=== PATIENT | male | born 1955 | race Caucasian/White ===

== ENCOUNTER → 2018-04-28 | Outpatient (CLI) | payer OTHER ==
--- NOTE | 2018-04-28 13:54 | EKG ---
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
[2018-04-28 13:57] LABS: CALCIUM 9.4 mg/dL (8.5-10.1); CREATININE 1.2 mg/dL (0.7-1.3); GFR 61.3; POTASSIUM 4.5 mmol/L (3.5-5.1)
== END | disposition home or self-care (01) ==
LOC: LAB 13:16
PROVIDERS: ATTEND Anesthesiology
DX: Z01.812 Encounter for preprocedural laboratory examination (principal)
CPT/HCPCS: 36415; 80048; 93005

== ENCOUNTER → 2018-10-10 | Outpatient (CLI) | payer OTHER ==
--- NOTE | 2018-10-10 14:08 | KCIC ---
Bilateral diagnostic digital mammograms: Reason for examination: Left breast lump. Family history of breast cancer. Interpretation was made with the benefit of CAD. The skin and nipples show no abnormalities. No abnormal lymph nodes are seen. The breast parenchyma is predominantly fatty. (Breast density: Category A.) There are no dominant masses, suspicious calcifications or architectural distortions. A few benign calcifications are seen. Impression: No evidence of malignancy. Ultrasound to follow. BI-RADS Category 0: Incomplete. Needs additional imaging evaluation. Left breast ultrasound: Ultrasound examination of the left breast was performed with attention to the area of clinical concern and the left axilla. At the 4:00 position 6.5 cm from the nipple and corresponding to the area of clinical concern, there is a hyperechoic circumscribed lesion measuring approximately 8 x 6.8 mm in greatest dimension. This likely represents a small lipoma or possibly a small hematoma. Recommend reevaluation in 3 months with ultrasound. No other cystic or solid lesions are seen. No abnormal appearing lymph nodes are seen in the axilla. IMPRESSION: 8 x 6.8 mm hyperechoic lesion probably representing a hematoma or lipoma at the 4:00 position and corresponding to the area of clinical concern. Recommend reevaluation with ultrasound in 3 months. BI-RADS Category 3: Probably Benign. "Our facility is accredited by the [employer] Mammography Program." This patient's information has been entered into a reminder system for the patient to be notified with the results of her examination and a target date for the next mammogram. Electronically signed by: Kathy Danielson MD (10/10/2018 2:03 PM) [id number]
== END | disposition home or self-care (01) ==
LOC: KCIC MAMMO 13:00
PROVIDERS: ATTEND Family Medicine
DX: N63.23 Unspecified lump in the left breast, lower outer quadrant (principal); Z80.3 Family history of malignant neoplasm of breast
CPT/HCPCS: 76641; 77066

== ENCOUNTER 2018-11-21 16:16 | Inpatient (IN) | payer OTHER ==
[~2018-11-21] VITALS: Ht 182.9 cm; Wt 107.5 kg
[2018-11-21 16:59] LABS: BASO # 0.1 x10^3/uL (0.0-0.2); BASO % 1 % (0-3); EOS # 0.1 x10^3/uL (0.0-0.7); EOS % 2 % (0-3); HEMATOCRIT 44.3 % (39.0-53.0); HEMOGLOBIN 15.1 g/dL (13.0-17.5); LYMPH # 2.4 x10^3/uL (1.0-4.8); LYMPH % 40 % (24-48); MEAN CORPUSCULAR HEMOGLOBIN 27 pg (25-35); MEAN CORPUSCULAR HGB CONC 34 g/dL (31-37); MEAN CORPUSCULAR VOLUME 80 fL (79-100); MONO # 0.5 x10^3/uL (0.0-1.1); MONO % 9 % (0-9); NEUT # 2.8 x10^3uL (1.8-7.7); NEUT % 48 % (31-73); PLATELET COUNT 203 x10^3/uL (140-400); RED BLOOD COUNT 5.56 x10^6/uL (4.30-5.70); RED CELL DISTRIBUTION WIDTH 13.7 % (11.5-14.5); WHITE BLOOD COUNT 5.9 x10^3/uL (4.0-11.0)
[2018-11-21] MEDS ORDERED: ASPIRIN 325 MG TABLET PO ONE (17:00)
--- NOTE | 2018-11-21 17:14 | PHYS DOC ---
Past Medical History Past Medical History: CAD, Cancer, Diabetes-Type II, High Cholesterol, Hypertension, Other Additional Past Medical Histor: PROSTATE CA Past Surgical History: Appendectomy, Coronary Bypass Surgery, Other Additional Past Surgical Histo: PROSTECTOMY Alcohol Use: None Drug Use: None Adult General Chief Complaint Chief Complaint: CHEST PAIN HPI HPI Patient is a 63 year old male who presents with male 2-1/2 weeks of bilateral chest fullness and sharp pain with shortness of air with exertion. Review of Systems Review of Systems Constitutional: Denies fever or chills [] Eyes: Denies change in visual acuity, redness, or eye pain [] HENT: Denies nasal congestion or sore throat [] Respiratory: Denies cough. +shortness of breath [] Cardiovascular: Bilateral chest pain without radiation GI: Denies abdominal pain, nausea, vomiting, bloody stools or diarrhea [] : Denies dysuria or hematuria [] Musculoskeletal: Denies back pain or joint pain [] Integument: Denies rash or skin lesions [] Neurologic: Denies headache, focal weakness or sensory changes [] Endocrine: Denies polyuria or polydipsia [] All other systems were reviewed and found to be within normal limits, except as documented in this note. Current Medications Current Medications Current Medications Medications (Trade) Dose Ordered Sig/Deidre Start Time Stop Time Status Last Admin Dose Admin Acetaminophen (Tylenol) 650 mg PRN Q4HRS PRN 11/21/18 17:30 11/22/18 17:29 Aspirin (Alex Aspirin) 325 mg 1X ONCE 11/21/18 17:00 11/21/18 17:01 DC 11/21/18 17:03 325 MG Fentanyl Citrate (Fentanyl 2ml Vial) 50 mcg PRN Q1HR PRN 11/21/18 17:30 11/22/18 17:29 Nitroglycerin (Nitrostat) 0.4 mg PRN Q5MIN PRN 11/21/18 17:30 11/22/18 17:29 Ondansetron HCl (Zofran) 4 mg PRN Q8HRS PRN 11/21/18 17:30 11/22/18 17:29 Allergies Allergies Allergies Coded Allergies Type Severity Reaction Last Updated Verified Ssilzja-Bgu-Iai Reductase Inhibitor Allergy Intermediate 11/21/18 Yes Physical Exam Physical Exam Constitutional: Well developed, well nourished, no acute distress, non-toxic appearance. [] HENT: Normocephalic, atraumatic, bilateral external ears normal, oropharynx moist, no oral exudates, nose normal. [] Eyes: PERRLA, EOMI, conjunctiva normal, no discharge. [] Neck: Normal range of motion, no tenderness, supple, no stridor. [] Cardiovascular:Heart rate regular rhythm, right bundle branch block, no murmur [ ] Lungs & Thorax: Bilateral breath sounds clear to auscultation [] Abdomen: Bowel sounds normal, soft, no tenderness, no masses, no pulsatile masses. [] Skin: Warm, dry, no erythema, no rash. [] Back: No tenderness, no CVA tenderness. [] Extremities: No tenderness, no cyanosis, no clubbing, ROM intact, no edema. [] Neurologic: Alert and oriented X 3, normal motor function, normal sensory function, no focal deficits noted. [] Psychologic: Affect normal, judgement normal, mood normal. [] Current Patient Data Vital Signs Vital Signs Date Time Temp Pulse Resp B/P (MAP) Pulse Ox O2 Delivery O2 Flow Rate FiO2 11/21/18 16:18 97.8 58 20 170/80 (110) 97 Room Air 97.8 Lab Values Laboratory Tests Test 11/21/18 16:45 White Blood Count 5.9 x10^3/uL (4.0-11.0) Red Blood Count 5.56 x10^6/uL (4.30-5.70) Hemoglobin 15.1 g/dL (13.0-17.5) Hematocrit 44.3 % (39.0-53.0) Mean Corpuscular Volume 80 fL (79-100) Mean Corpuscular Hemoglobin 27 pg (25-35) Mean Corpuscular Hemoglobin Concent 34 g/dL (31-37) Red Cell Distribution Width 13.7 % (11.5-14.5) Platelet Count 203 x10^3/uL (140-400) Neutrophils (%) (Auto) 48 % (31-73) Lymphocytes (%) (Auto) 40 % (24-48) Monocytes (%) (Auto) 9 % (0-9) Eosinophils (%) (Auto) 2 % (0-3) Basophils (%) (Auto) 1 % (0-3) Neutrophils # (Auto) 2.8 x10^3uL (1.8-7.7) Lymphocytes # (Auto) 2.4 x10^3/uL (1.0-4.8) Monocytes # (Auto) 0.5 x10^3/uL (0.0-1.1) Eosinophils # (Auto) 0.1 x10^3/uL (0.0-0.7) Basophils # (Auto) 0.1 x10^3/uL (0.0-0.2) Troponin I Quantitative < 0.017 ng/mL (0.000-0.055) Laboratory Tests 11/21/18 16:45 EKG EKG Sinus rhythm and right bundle branch block with no STEMI[] Interpretation Time: [address] Mckeon Radiology/Procedures Radiology/Procedures [] Impressions: [facility] [address] [place] [address] IMAGING REPORT Signed PATIENT: AMBER STEEL ACCOUNT: [id number] : 1955 LOCATION: ER AGE: 63 SEX: M EXAM STATUS: REG ER ORD. PHYSICIAN: CHRIS ANDERSON APRN REASON: chest pain PROCEDURE: CHEST PA & LATERAL EXAM: Chest, 2 views. HISTORY: Chest pain. COMPARISON: None. FINDINGS: 2 views the chest are obtained. There is no infiltrate, pleural effusion or pneumothorax. The heart is normal in size. There is evidence of prior CABG. There is suspected lingular atelectasis or scarring. IMPRESSION: No acute pulmonary finding. Electronically signed by: Paula Muñoz MD (11/21/2018 5:34 PM) [id number] DICTATED and SIGNED BY: PAULA MUÑOZ MD DATE: 11/21/18 1866 Course & Med Decision Making Course & Med Decision Making Patient is a 63 year old male who presents with male 2-1/2 weeks of bilateral chest fullness and sharp pain with shortness of air with exertion. Patient is alert and oriented. Skin pink warm and dry. Mucous membranes are moist. Speaks in full clear sentences. Rates his pain at this time at a 2 out of 10. Patient is refusing any pain medications nitroglycerin at this time. Patient is given a 325mg aspirin. Lungs are clear also patient all lobes. Abdomen is soft and nontender. Chest pain cannot be reproducible with palpation. Patient denies dizziness, headache, numbness or tingling, nausea, vomiting, diarrhea, fever, cough. He has no peripheral extremity edema. EKG shows sinus rhythm, right bundle branch block and no STEMI. Patient states he saw his primary care physician Dr. Nelson who sent him to the ED. PERRLA. No focal weaknesses. Ambulatory with a steady gait. Heart score 4. Blood work unremarkable. Chest xray shows no acute findings. 1720: I have spoken to Dr. Nelson for Admission for chest pain. Dragon Disclaimer Dragon Disclaimer This electronic medical record was generated, in whole or in part, using a voice recognition dictation system. Departure Departure Impression: Primary Impression: Chest pain Disposition: ADMITTED INPATIENT Admitting Physician: Mario Nelson Condition: STABLE Referrals: MARIO NELSON MD (PCP) Problem Qualifiers Primary Impression: Chest pain Chest pain type: unspecified Qualified Codes: R07.9 - Chest pain, unspecified CHRIS ANDERSON LEGAL PROCESS SPECIALIST Nov 21, 2018 17:14
[2018-11-21] MEDS ORDERED: ACETAMINOPHEN 325 MG TABLET. PO PRN (17:30)
[2018-11-21] MEDS ORDERED: fentaNYL PF VIAL 100 MCG/2 ML VIAL IV PRN (17:30)
[2018-11-21] MEDS ORDERED: ONDANSETRON PF 4 MG/2 ML VIAL. IV PRN (17:30)
[2018-11-21] MEDS ORDERED: NITROGLYCERIN SUBLINGUAL 0.4 MG BOTTLE OF 25. SL PRN (17:30)
--- NOTE | 2018-11-21 17:37 | RAD ---
EXAM: Chest, 2 views. HISTORY: Chest pain. COMPARISON: None. FINDINGS: 2 views the chest are obtained. There is no infiltrate, pleural effusion or pneumothorax. The heart is normal in size. There is evidence of prior CABG. There is suspected lingular atelectasis or scarring. IMPRESSION: No acute pulmonary finding. Electronically signed by: Paula Spencer MD (11/21/2018 5:34 PM) [facility]
[2018-11-21 20:20] VITALS: BP 157/88
[2018-11-21] MEDS ORDERED: GEMF600T PO (21:33)
[2018-11-21] MEDS ORDERED: INSU100V SQ (21:33)
[2018-11-21] MEDS ORDERED: INSU300I SQ (21:33)
[2018-11-21] MEDS ORDERED: AMLO5TAB10 PO (21:33)
[2018-11-21] MEDS ORDERED: PANT40GR PO (21:33)
[2018-11-21] MEDS ORDERED: HYDR25TA PO (21:33)
[2018-11-21] MEDS ORDERED: EMPA25TA PO (21:33)
[2018-11-21] MEDS ORDERED: PROP80CA3 PO (21:33)
[2018-11-21 23:13] VITALS: BP 134/71
[2018-11-21] MEDS ORDERED: DEXTROSE 50% 25 GM / 50ML DISP.SYRIN. IV PRN (23:30)
[2018-11-21 23:36] LABS: CALCIUM 9.6 mg/dL (8.5-10.1); GFR 75.5; POTASSIUM 3.9 mmol/L (3.5-5.1)
[2018-11-21] MEDS ORDERED: INSULIN LISPRO 300 UNITS/3 ML INSULN.PEN. SQ ONE (23:45)
[2018-11-21] MEDS: ZOLPIDEM 5 MG TABLET. PO PRN (23:52)
[2018-11-22] VITALS (10 sets, daily range): BP systolic 109–138; BP diastolic 63–89
--- NOTE | 2018-11-22 06:58 | PDOC1 ---
History and Physical Date of Admission Date of Admission 11/22/18 Identification/Chief Complaint Chief Complaint Chest pain Source Source: Patient History of Present Illness History of Present Illness Pt presented to clinic yesterday complaining of chest pain with exertion over the past 2 weeks, occurring with walking and with intercourse. Pt would also get short of air. He has been following with Dr. Butler and has not established with a new director of publications. He has had 2 CABGs in the past. His last stress was about 2 years ago according to patient and was normal. Pt also has a left chest mass. It has not increased in size but he has noticed increased swelling and achiness in his left side Past Medical History Cardiovascular: CAD, HTN, Hyperlipidemia Pulmonary: No pertinent hx GI: No pertinent hx Heme/Onc: No pertinent hx Hepatobiliary: No pertinent hx Psych: Anxiety Rheumatologic: No pertinent hx Infectious disease: No pertinent hx ENT: No pertinent hx Renal/: Prostate Ca. Endocrine: Diabetes Dermatology: No pertinent hx Past Surgical History Past Surgical History: Appendectomy, CABG, Other (Prostectomy, deviated septum repair, hand tendon repair) Family History Family History: Alzheimer's Disease Social History Smoke: # pack years ALCOHOL: none Drugs: None Current Problem List Problem List Problems Medical Problems: (1) Chest pain Status: Acute Current Medications Current Medications Current Medications Medications (Trade) Dose Ordered Sig/Deidre Start Time Stop Time Status Last Admin Dose Admin Acetaminophen (Tylenol) 650 mg PRN Q4HRS PRN 11/21/18 17:30 11/22/18 17:29 Aspirin (Alex Aspirin) 325 mg 1X ONCE 11/21/18 17:00 11/21/18 17:01 DC 11/21/18 17:03 325 MG Dextrose (Dextrose 50%-Water Syringe) 12.5 gm PRN Q15MIN PRN 11/21/18 23:30 Fentanyl Citrate (Fentanyl 2ml Vial) 50 mcg PRN Q1HR PRN 11/21/18 17:30 11/22/18 17:29 Insulin Glargine (Lantus) 56 units DAILY 11/22/18 09:00 Insulin Human Lispro (HumaLOG) 15 units TIDWMEALS 11/22/18 08:00 Nitroglycerin (Nitrostat) 0.4 mg PRN Q5MIN PRN 11/21/18 17:30 11/22/18 17:29 Ondansetron HCl (Zofran) 4 mg PRN Q8HRS PRN 11/21/18 17:30 11/22/18 17:29 Zolpidem Tartrate (Ambien) 5 mg PRN QHS PRN 11/21/18 23:30 11/21/18 23:52 5 MG Allergies Allergies Allergies Coded Allergies Type Severity Reaction Last Updated Verified Rfjtvvn-Ahh-Yae Reductase Inhibitor Allergy Intermediate 11/21/18 Yes ROS Review of System CONSTITUTIONAL: No fever or chills EYES: No recent changes SKIN: No rash or itching CARDIOVASCULAR: No syncope, palpitations, or edema, +CP RESPIRATORY: No cough, +SOA when he has chest pain GASTROINTESTINAL: No nausea, vomiting or abdominal pain NEUROLOGICAL: No headaches or weakness ENDOCRINE: No cold or heat intolerance GENITOURINARY: No urgency or frequency of urination MUSCULOSKELETAL: No back pain or joint pain LYMPHATICS: No enlarged lymph nodes PSYCHIATRIC: No anxiety or depression Physical Exam Physical Exam GEN.: No apparent distress. Alert and oriented. HEENT: Head is normocephalic, atraumatic NECK: Supple. LUNGS: Clear to auscultation. HEART: RRR, S1, S2 present. Peripheral pulses intact ABDOMEN: Soft, nontender. Positive bowel sounds. EXTREMITIES: Without any cyanosis. NEUROLOGIC: Normal speech, normal tone PSYCHIATRIC: Normal affect, normal mood. SKIN: No ulcerations Vitals Vitals Vital Signs Date Time Temp Pulse Resp B/P (MAP) Pulse Ox O2 Delivery O2 Flow Rate FiO2 11/22/18 03:03 97.7 70 18 109/63 (78) 96 Room Air 97.7 Labs Labs Laboratory Tests Test 11/21/18 16:45 11/21/18 23:10 11/21/18 23:21 White Blood Count 5.9 x10^3/uL (4.0-11.0) Red Blood Count 5.56 x10^6/uL (4.30-5.70) Hemoglobin 15.1 g/dL (13.0-17.5) Hematocrit 44.3 % (39.0-53.0) Mean Corpuscular Volume 80 fL (79-100) Mean Corpuscular Hemoglobin 27 pg (25-35) Mean Corpuscular Hemoglobin Concent 34 g/dL (31-37) Red Cell Distribution Width 13.7 % (11.5-14.5) Platelet Count 203 x10^3/uL (140-400) Neutrophils (%) (Auto) 48 % (31-73) Lymphocytes (%) (Auto) 40 % (24-48) Monocytes (%) (Auto) 9 % (0-9) Eosinophils (%) (Auto) 2 % (0-3) Basophils (%) (Auto) 1 % (0-3) Neutrophils # (Auto) 2.8 x10^3uL (1.8-7.7) Lymphocytes # (Auto) 2.4 x10^3/uL (1.0-4.8) Monocytes # (Auto) 0.5 x10^3/uL (0.0-1.1) Eosinophils # (Auto) 0.1 x10^3/uL (0.0-0.7) Basophils # (Auto) 0.1 x10^3/uL (0.0-0.2) Troponin I Quantitative < 0.017 ng/mL (0.000-0.055) < 0.017 ng/mL (0.000-0.055) Sodium Level 141 mmol/L (136-145) Potassium Level 3.9 mmol/L (3.5-5.1) Chloride Level 104 mmol/L (98-107) Carbon Dioxide Level 25 mmol/L (21-32) Anion Gap 12 (6-14) Blood Urea Nitrogen 19 mg/dL (8-26) Creatinine 1.0 mg/dL (0.7-1.3) Estimated GFR (Cockcroft-Gault) 75.5 Glucose Level 219 mg/dL (70-99) Calcium Level 9.6 mg/dL (8.5-10.1) Glucose (Fingerstick) 210 mg/dL (70-99) Laboratory Tests Test 11/21/18 16:45 11/21/18 23:10 11/21/18 23:21 White Blood Count 5.9 x10^3/uL (4.0-11.0) Red Blood Count 5.56 x10^6/uL (4.30-5.70) Hemoglobin 15.1 g/dL (13.0-17.5) Hematocrit 44.3 % (39.0-53.0) Mean Corpuscular Volume 80 fL (79-100) Mean Corpuscular Hemoglobin 27 pg (25-35) Mean Corpuscular Hemoglobin Concent 34 g/dL (31-37) Red Cell Distribution Width 13.7 % (11.5-14.5) Platelet Count 203 x10^3/uL (140-400) Neutrophils (%) (Auto) 48 % (31-73) Lymphocytes (%) (Auto) 40 % (24-48) Monocytes (%) (Auto) 9 % (0-9) Eosinophils (%) (Auto) 2 % (0-3) Basophils (%) (Auto) 1 % (0-3) Neutrophils # (Auto) 2.8 x10^3uL (1.8-7.7) Lymphocytes # (Auto) 2.4 x10^3/uL (1.0-4.8) Monocytes # (Auto) 0.5 x10^3/uL (0.0-1.1) Eosinophils # (Auto) 0.1 x10^3/uL (0.0-0.7) Basophils # (Auto) 0.1 x10^3/uL (0.0-0.2) Troponin I Quantitative < 0.017 ng/mL (0.000-0.055) < 0.017 ng/mL (0.000-0.055) Sodium Level 141 mmol/L (136-145) Potassium Level 3.9 mmol/L (3.5-5.1) Chloride Level 104 mmol/L (98-107) Carbon Dioxide Level 25 mmol/L (21-32) Anion Gap 12 (6-14) Blood Urea Nitrogen 19 mg/dL (8-26) Creatinine 1.0 mg/dL (0.7-1.3) Estimated GFR (Cockcroft-Gault) 75.5 Glucose Level 219 mg/dL (70-99) Calcium Level 9.6 mg/dL (8.5-10.1) Glucose (Fingerstick) 210 mg/dL (70-99) VTE Prophylaxis Ordered VTE Prophylaxis Devices: No VTE Pharmacological Prophylaxi: No Assessment/Plan Assessment/Plan Pt is a 63yo CM admitted for chest pain 1)Chest pain with exertion- significant history of CAD. Last stress test was about 2 years ago and was normal. Previous director of publications was Dr. Butler, has not established with a new director of publications. EKG in clinic was abnormal but no acute changes and no previous to compare to. Troponin x2 WNL 2)Left flank swelling- with left chest lesion. Will get U/S 3)DM2- not at goal. HbA1C pending. Pt continued on home doses of Lantus 56 units QHS and Humalog 15U QAC. Pt also on Jardiance, but will hold this for now while pt is NPO 4)HLD- pt intolerant to statins. Not at goal, repeat FLP pending. Pt normally on Lopid 600mg qday 5)HTN- well controlled. Will continue pt on Norvasc 5mg and Propranolol 80mg ER when no longer NPO 6)Anxiety- pt uses Vistaril for his anxiety ANGEL SWANN MD Nov 22, 2018 06:58
[2018-11-22] MEDS ORDERED: hydrALAZINE 20 MG/ML VIAL. IVP PRN (07:00)
[2018-11-22] MEDS: INSULIN LISPRO 300 UNITS/3 ML INSULN.PEN. SQ SCH ×6 (08:00→17:46)
--- NOTE | 2018-11-22 08:19 | EKG ---
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
[2018-11-22 08:45] LABS: CHOLESTEROL/HDL RATIO 6.6
[2018-11-22] MEDS: INSULIN GLARGINE 300 UNITS/3 ML INSULN.PEN. SQ SCH (09:00)
--- NOTE | 2018-11-22 10:38 | PDOC2 ---
YOU CHRISTIAN TELEPHONE AD TAKER 11/22/18 1038: CARDIAC CONSULT DATE OF CONSULT Date of Consult DATE: 11/22/18 TIME: 10:33 REASON FOR CONSULT Reason for Consult: Chest pain REFERRING PHYSICIAN Referring Physician: Dr. Nixon SOURCE Source: Chart review, Patient HISTORY OF PRESENT ILLNESS HISTORY OF PRESENT ILLNESS This is a 63 yo male, with a history of CAD s/p CABG, hypertension, hyperlipidemia, diabetes, and CHF, who presented secondary to chest pain and shortness of breath with exertion. Patient reports experience chest tightness for the last 2 weeks with any type of physical exertion. Feels like the is a band across his central chest. Associated with SOA, diaphoresis, and mild nausea. No dizziness or palpitations. No recent orthopnea, PND, or LE edema. Resolved with rest. Went on vacation to [place]. Report having significant chest tightness with exertion during that time, which prevented him from enjoying activity or exploring on vacation. Has significant difficult in airport attempting [place] amb[place] flight. Had to stop multiple times along the way. Patient reports that symptoms feel similar to what he previously experienced prior to CABG. Has had 2 cardiac catheterizations without intervention since CABG. Last about 8 years ago. Reports compliance with medications. Previously followed with Dr. Butler. Also has tenderness, swelling in his left axilla area. Underwent mammogram and US, which noted hyperechoic lesion probably representing a hematoma or lipoma. Follow up with US was recommended in 3 months. Patient very concerned with symptoms given his history of CAD and would like to have cardiac cath. PAST MEDICAL HISTORY Cardiovascular: CAD, CHF, HTN, Hyperlipidemia Pulmonary: Other (AB) CENTRAL NERVOUS SYSTEM: Other (no pertinent hx) GI: GERD Heme/Onc: No pertinent hx Hepatobiliary: No pertinent hx Psych: Anxiety Musculoskeletal: Other (no pertinent hx) Rheumatologic: No pertinent hx Infectious disease: No pertinent hx ENT: No pertinent hx Renal/: No pertinent hx Endocrine: Diabetes Dermatology: No pertinent hx PAST SURGICAL HISTORY Past Surgical History: CABG, Other (prostectomy, deviated septum repair, hand tendon repair) FAMILY HISTORY Family History: Coronary Artery Disease, High Cholestrol, Hypertension SOCIAL HISTORY Smoke: No ALCOHOL: none Drugs: None Lives: with Family CURRENT MEDICATIONS CURRENT MEDICATIONS Current Medications Medications (Trade) Dose Ordered Sig/Deidre Route PRN Reason Start Time Stop Time Status Last Admin Dose Admin Aspirin (Alex Aspirin) 325 mg 1X ONCE PO 11/21/18 17:00 11/21/18 17:01 DC 11/21/18 17:03 Zolpidem Tartrate (Ambien) 5 mg PRN QHS PRN PO INSOMNIA 11/21/18 23:30 11/21/18 23:52 Insulin Human Lispro (HumaLOG) 15 units 1X ONCE SQ 11/21/18 23:45 11/21/18 23:46 DC 11/21/18 23:56 ALLERGIES ALLERGIES: Coded Allergies: Yizexvb-Mte-Ibn Reductase Inhibitor (Verified Allergy, Intermediate, ) ROS Review of System 14 point ROS conducted with pertinent positives noted above in HPI. PHYSICAL EXAM General: Alert, Oriented X3, Cooperative, No acute distress HEENT: Atraumatic Lungs: Clear to auscultation, Other (left axilla tenderness, swelling) Heart: Regular rate, Normal S1, Normal S2 Abdomen: Soft, No tenderness Extremities: No edema, Normal pulses Skin: No significant lesion Neuro: Normal speech, Sensation intact Psych/Mental Status: Mental status NL, Mood NL MUSCULOSKELETAL: Osteoarthritic changes both hands VITALS VITALS Vital Signs Date Time Temp Pulse Resp B/P (MAP) Pulse Ox O2 Delivery O2 Flow Rate FiO2 11/22/18 08:00 Room Air 11/22/18 07:00 97.6 60 18 127/79 (95) 91 97.6 LABS Lab: Laboratory Tests Test 11/21/18 16:45 11/21/18 23:10 11/21/18 23:21 11/22/18 07:18 White Blood Count 5.9 x10^3/uL (4.0-11.0) Red Blood Count 5.56 x10^6/uL (4.30-5.70) Hemoglobin 15.1 g/dL (13.0-17.5) Hematocrit 44.3 % (39.0-53.0) Mean Corpuscular Volume 80 fL (79-100) Mean Corpuscular Hemoglobin 27 pg (25-35) Mean Corpuscular Hemoglobin Concent 34 g/dL (31-37) Red Cell Distribution Width 13.7 % (11.5-14.5) Platelet Count 203 x10^3/uL (140-400) Neutrophils (%) (Auto) 48 % (31-73) Lymphocytes (%) (Auto) 40 % (24-48) Monocytes (%) (Auto) 9 % (0-9) Eosinophils (%) (Auto) 2 % (0-3) Basophils (%) (Auto) 1 % (0-3) Neutrophils # (Auto) 2.8 x10^3uL (1.8-7.7) Lymphocytes # (Auto) 2.4 x10^3/uL (1.0-4.8) Monocytes # (Auto) 0.5 x10^3/uL (0.0-1.1) Eosinophils # (Auto) 0.1 x10^3/uL (0.0-0.7) Basophils # (Auto) 0.1 x10^3/uL (0.0-0.2) Troponin I Quantitative < 0.017 ng/mL (0.000-0.055) < 0.017 ng/mL (0.000-0.055) Sodium Level 141 mmol/L (136-145) Potassium Level 3.9 mmol/L (3.5-5.1) Chloride Level 104 mmol/L (98-107) Carbon Dioxide Level 25 mmol/L (21-32) Anion Gap 12 (6-14) Blood Urea Nitrogen 19 mg/dL (8-26) Creatinine 1.0 mg/dL (0.7-1.3) Estimated GFR (Cockcroft-Gault) 75.5 Glucose Level 219 mg/dL (70-99) Calcium Level 9.6 mg/dL (8.5-10.1) Glucose (Fingerstick) 210 mg/dL (70-99) 131 mg/dL (70-99) Test 11/22/18 08:00 Troponin I Quantitative < 0.017 ng/mL (0.000-0.055) Triglycerides Level 284 mg/dL (0-150) Cholesterol Level 179 mg/dL (0-200) LDL Cholesterol, Calculated 95 mg/dL (0-100) VLDL Cholesterol, Calculated 57 mg/dL (0-40) Non-HDL Cholesterol Calculated 152 mg/dL (0-129) HDL Cholesterol 27 mg/dL (40-60) Cholesterol/HDL Ratio 6.6 STRESS TEST STRESS TEST Conclusion 1. The baseline electrocardiogram shows sinus rhythm a right bundle branch block. 2. No electrocardiographic changes suggestive of myocardial ischemia with pharmacological stress. 3. No significant perfusion defects are seen on the tomographic slices to suggest myocardial ischemia or scar. 4. Normal wall motion and wall thickening with an ejection fraction of 63%. 5. Scan indicates low risk for future cardiac events. DATE: 02/21/152054 ASSESSMENT/PLAN ASSESSMENT/PLAN 1. Chest pain; with typical features. trop series negative- AMI ruled out. 2. CAD s/p CABG 2006 3. Accelerated hypertension; better controlled 4. Chronic diastolic CHF; clinically compensated 5. Hyperlipemia; allergy to statin 6. Diabetes, II 7. Anxiety Recommendations Check lipids Obtain echo to assess LV systolic function Keep NPO Symptoms concerning given significant history/risk factors. Discussed further ischemic workup with MPI versus cardiac. Patient would like to proceed with cardiac cath. R/b/a discussed and patient has agreed. Will proceed wtih later this evening DAMON GONG MD 11/22/181744: CARDIAC CONSULT ASSESSMENT/PLAN ASSESSMENT/PLAN Pt. seen and examined. Agree with above OFFSET PRESSMAN note. Cath with patent grafts. He has SVG to OM2 that has a 70% stenosis. Normal LVEDP Normal LV systolic function. EKG w/o significant hypertrophy Etiology of chest pain is very perplexing - no clear source. Could be SVG stenosis but unlikely Will plan for b-mckenna and renexa therapy. Consider outpt MPI to determine if there is significant ischemia and only then consider PCI of the OM. Thanks. YOU CHRISTIAN APRN Nov 22, 2018 10:38 DAMON GONG MD Nov 22, 2018 17:45
--- NOTE | 2018-11-22 10:50 | RAD ---
Left axillary ultrasound, 11/22/2018: HISTORY: Axillary fluid collection No axillary mass or abnormal fluid collection is identified. Electronically signed by: Ronnie Zhao MD (11/22/2018 10:46 AM) [facility]
[2018-11-22] MEDS ORDERED: LIDOCAINE 1% PF 2 ML VIAL. ONE (11:21)
[2018-11-22] MEDS ORDERED: IOHEXOL 300 MG/ML 100ML VIAL. ONE ×2 (11:21→16:57)
--- NOTE | 2018-11-22 13:16 | NUR ---
SS following for discharge planning. SS reviewed pt chart. Pt is from home with spouse and is currently on room air. No discharge needs noted at this time. SS will continue to follow for pending discharge needs.
[2018-11-22 13:52] LABS: PROTHROMBIN TIME PATIENT 13.7 SEC (11.7-14.0)
--- NOTE | 2018-11-22 15:58 | EKG ---
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
[2018-11-22] MEDS ORDERED: LIDOCAINE 1% Multi-Dose 20 ML VIAL. ONE (16:06)
[2018-11-22] MEDS ORDERED: MIDAZOLAM HCL/PF 2 MG/2 ML VIAL. ONE (16:15)
[2018-11-22] MEDS ORDERED: fentaNYL PF VIAL 100 MCG/2 ML VIAL ONE (16:15)
--- NOTE | 2018-11-22 16:24 | PDOC ---
MODERATE SEDATION ASSESSMENT RISKS/ALTERNATIVES Risks/Alternatives Risks and alternatives of this type of sedation and procedure discussed with: RISK/ALTERNATIVES: Patient H & P ON CHART H & P H & P on chart and reviewed for co-morbid conditions and appropriate labs. H&P ON CHART: Yes STATUS PREG STATUS ASSESSED: N/A MEDS/ALLERGIES REVIEWED Meds/Allergies Reviewed Medications and Allergies including time and route of recently administered narcotics and sedatives. MEDS/ALLERGIES REVIEWED: Yes ASA RATING ASA RATING: II AIRWAY ASSESSMENT Airway Assessment Airway patency, oral function limitations, presence of caps, crowns, dentures, partials, and ability to extend neck assessed. AIRWAY ASSESSMENT: Yes MALLAMPATI SCORE MALLAMPATI SCORE: II PRE-SEDATION ASSESSMENT PRE-SEDATION ASSESSMENT: Yes DAMON GONG MD Nov 22, 2018 16:24
[2018-11-22] MEDS ORDERED: CONTRAST GIVEN. MC PRN (16:30)
[2018-11-22] MEDS ORDERED: LIDOCAINE 1% Multi-Dose 20 ML VIAL. INJ ONE (16:30)
[2018-11-22] MEDS ORDERED: MIDAZOLAM HCL/PF 2 MG/2 ML VIAL. IV ONE (16:30)
[2018-11-22] MEDS ORDERED: fentaNYL PF VIAL 100 MCG/2 ML VIAL IV ONE (16:30)
[2018-11-22] MEDS ORDERED: IOHEXOL 300 MG/ML 100ML VIAL. IART ONE (16:30)
[2018-11-22] MEDS: amLODIPine BESYLATE 5 MG TABLET PO SCH (17:45)
[2018-11-22] MEDS: GEMFIBROZIL 600 MG TABLET. PO SCH (17:45)
--- NOTE | 2018-11-22 18:49 | CARD ---
MR#: [id number] Date of Study: 11/22/2018 Ordering Physician: DAMON HILLMAN, Referring Physician: ANGEL SWANN Tech: MACY BOWMAN RTR APPROVED REPORT Technologist: MACY BOWMAN RTR Nurse: LAVELL LICONA RN Procedure(s) performed: MODERATE SEDATION TIME: 56 MINUTES HISTORY The patient is a 63 year-old male with a history of : coronary artery disease, hypertension, dyslipid emia. INDICATION The indication(s) include : dyspnea. CSHA Clinical Frailty Scale CS Clinical Frailty Scale: Vulnerable Heart Failure Heart Failure: Yes If Yes, Newly Diagnosed: No If Yes, HF Type: Diastolic If Yes, NYHA Class: Class II PROCEDURE NARRATIVE After explaining the risks and benefits of the procedure and alternatives, informed consent was obtai jennifer. The patient was brought electively to the cardiac catheterization lab in a fasting state. A ruel eout was performed confirming the patient's name, date of , procedure, and site of procedure. A ll necessary personnel were wearing the appropriate protective equipment and radiation monitor device s. (See nursing notes for medications administered). The right groin was sterilely prepped and drap ed in the usual fashion. The right groin was infiltrated with 10 mL of 2% lidocaine for subcutaneous anesthesia. A 6 F sheath was inserted into the right femoral artery without difficulty. Right and left coronary angiography was performed using a JR4 and JL4 catheter. Left ventricular end diastolic pressure was obtained with a pigtail catheter and pullback was performed after left ventriculography . All catheter exchanges and advancements were performed over a guidewire. At case completion the r ight femoral sheath was removed and hemostasis was achieved with an Angioseal Device after limited fe moral angiography confirmed adequate vessel size and anatomy. There were no acute complications. HEMODYNAMICS: AO: 138/78 LVEDP 10 mm Hg No gradient on LV to aortic pullback. LEFT VENTRICULOGRAM: EF 70% Anterobasal: Normal. Anterolateral: Normal Apical: Normal Diaphragmatic: Normal Posterobasal: Normal *No significant mitral regurgitation or aortic insufficiency. CORONARY ANGIOGRAPHY: LM is a large caliber vessel with a distal 50% stenosis. LAD is a moderate caliber vessel with a proximal 100% occlusion. The distal vessel fills via a patent LANZA graft and has no significant disease. LCx is a moderate caliber non-dominant vessel with an ostial 50% stenosis. OM1 is a moderate caliber vessel that fills via a small caliber radial graft and has an ostial 40-50% stenosis. OM2 is a small caliber vessel with a proximal to mid 40-50% stenosis. This vessel is also seen to josiah l competitively via a SVG with a 70% stenosis. RCA is a dominant vessel with a mid 100% occusion. The distal vessel is small in caliber and seen to fill via SVG to RPDA/RPL crux. BYPASS ANGIOGRAPHY: LANZA to LAD - Widely patent without anastomotic stenosis. SVG to RCA - Widely patent without anastomotic stenosis. SVG to OM2 - Patent with a mid 70% eccentric stenosis. Radial to OM1 - Patent without anastomotic stenosis, the vessel appears negatively remodeled. Conclusion 1. Normal LV systolic function. EF 70%. 2. Normal LVEDP 3. Severe chicken ranch three vessel coronary disease. 4. 4/4 grafts patent Recommendations 1. His dyspnea is out of proportion to his coronary anatomy. His only significant lesion is a SVG to OM1 stenosis of 70% which should not lead to such profound dyspnea. DDx is hypertensive heart disease /tachycardia or pulmonary issues. 2. Will plan for b-mckenna, renexa therapy and outpt pulmonary evaluation. If pulmonary evaluation is negative, then plan for treadmill MPI to determine if there is any lateral wall ischemia supplied by the SVG to OM1 and could consider either chicken ranch vessel PCI or vein graft PCI. Signed by : Damon Hillman, Electronically Approved : 11/22/2018 18:49:14
[2018-11-22] MEDS ORDERED: PERFLUTREN PROTEIN-A MICROSPHR 0.22 MG/ML 3 ML VIAL. IV PRN (19:15)
[2018-11-22] MEDS: RANOLAZINE 500 MG TAB.ER.12H PO SCH (21:27)
[2018-11-22] MEDS: ZOLPIDEM 5 MG TABLET. PO PRN (21:28)
[2018-11-22] MEDS: METOPROLOL TART IMMED RELEASE 25 MG TABLET. PO SCH (21:28)
[2018-11-23 01:11] LABS: HEMOGLOBIN A1C 8.3 % (4.8-5.6)
[2018-11-23 03:00] VITALS: BP 99/68
[2018-11-23 07:00] VITALS: BP 135/86
[2018-11-23] MEDS: GEMFIBROZIL 600 MG TABLET. PO SCH (08:08)
[2018-11-23] MEDS: RANOLAZINE 500 MG TAB.ER.12H PO SCH (08:08)
[2018-11-23] MEDS: amLODIPine BESYLATE 5 MG TABLET PO SCH (08:09)
[2018-11-23] MEDS: METOPROLOL TART IMMED RELEASE 25 MG TABLET. PO SCH (08:09)
[2018-11-23] MEDS: INSULIN LISPRO 300 UNITS/3 ML INSULN.PEN. SQ SCH ×4 (08:16→12:13)
[2018-11-23] MEDS ORDERED: ACETAMINOPHEN 325 MG TABLET. PO ONE (09:00)
[2018-11-23] MEDS: INSULIN GLARGINE 300 UNITS/3 ML INSULN.PEN. SQ SCH (09:25)
--- NOTE | 2018-11-23 09:56 | PDOC3 ---
Discharge Summary Date of Admission: Nov 22, 2018 Date of Discharge: Nov 23, 2018 Follow-Up: Other (2 weeks) Admitting Diagnosis comment: Chest pain FINAL DIAGNOSIS Chest pain with exertion- essentially normal heart catheterization, Left flank swelling, DM2-uncontrolled, HLD, HTN, anxiety Brief Hospital Course DISCHARGE PHYSICAL EXAM GEN.: No apparent distress. Alert and oriented. HEENT: Head is normocephalic, atraumatic NECK: Supple. LUNGS: Clear to auscultation. HEART: RRR, S1, S2 present. Peripheral pulses intact ABDOMEN: Soft, nontender. Positive bowel sounds. EXTREMITIES: Without any cyanosis. NEUROLOGIC: Normal speech, normal tone PSYCHIATRIC: Normal affect, normal mood. SKIN: No ulcerations Pt is a 63yo CM admitted for chest pain 1)Chest pain with exertion- significant history of CAD with previous CABG. Pt' s heart catheterization was essentially normal. Cardiology has recommended getting pulmonary workup. If normal, they may consider putting one stent in. 2)Left flank swelling- with left chest lesion. U/S normal. Discussed if continuing to bother may need to get MRI or surgical consult 3)DM2- not at goal. HbA1C 8.3. Pt continued on home doses of Lantus 56 units QHS and Humalog 15U QAC. Jardiance held during hospitalization but resumed on discharge 4)HLD- pt intolerant to statins. Not at goal. Pt normally on Lopid 600mg qday. Unable to tolerate statins 5)HTN- well controlled. Continued pt on Norvasc 5mg and Propranolol 80mg ER 6)Anxiety- pt uses Vistaril for his anxiety Discharge Medications Current Medications Aspirin (Alex Aspirin) 325 mg 1X ONCE PO Last administered on 11/21/18at 17:03 ; Start 11/21/18 at 17:00; Stop 11/21/18 at 17:01; Status DC Ondansetron HCl (Zofran) 4 mg PRN Q8HRS PRN IV NAUSEA/VOMITING; Start 11/21/18 at 17:30; Stop 11/22/18 at 17:29; Status DC Fentanyl Citrate (Fentanyl 2ml Vial) 50 mcg PRN Q1HR PRN IV PAIN; Start at 17:30; Stop 11/22/18 at 17:29; Status DC Acetaminophen (Tylenol) 650 mg PRN Q4HRS PRN PO FEVER; Start 11/21/18 at 17:30 ; Stop 11/22/18 at 17:29; Status DC Nitroglycerin (Nitrostat) 0.4 mg PRN Q5MIN PRN SL CHEST PAIN; Start 11/21/18 at 17:30; Stop 11/22/18 at 17:29; Status DC Zolpidem Tartrate (Ambien) 5 mg PRN QHS PRN PO INSOMNIA Last administered on 08/31at 21:28; Start 11/21/18 at 23:30 Insulin Glargine (Lantus) 56 units DAILY SQ Last administered on 11/23/18at 09: 25; Start 11/22/18 at 09:00 Insulin Human Lispro (HumaLOG) 0-5 UNITS TIDWMEALS SQ Last administered on 11/23at 08:16; Start 11/22/18 at 08:00 Dextrose (Dextrose 50%-Water Syringe) 12.5 gm PRN Q15MIN PRN IV SEE COMMENTS; Start 11/21/18 at 23:30 Insulin Human Lispro (HumaLOG) 15 units 1X ONCE SQ Last administered on at 23:56; Start 11/21/18 at 23:45; Stop 11/21/18 at 23:46; Status DC Insulin Human Lispro (HumaLOG) 15 units TIDWMEALS SQ Last administered on at 08:17; Start 11/22/18 at 08:00 Hydralazine HCl (Apresoline Inj) 10 mg PRN Q4HRS PRN IVP ELEVATED BP, SEE COMMENTS; Start 11/22/18 at 07:00 Lidocaine HCl (Xylocaine-Mpf 1% 2ml Vial) 2 ml STK-MED ONCE .ROUTE ; Start 11/22 at 11:21; Stop 11/22/18 at 11:22; Status DC Iohexol (Omnipaque 300 Mg/ml) 100 ml STK-MED ONCE .ROUTE ; Start 11/22/18 at 11: 21; Stop 11/22/18 at 11:22; Status DC Heparin Sodium/ Sodium Chloride 1,000 ml @ As Directed STK-MED ONCE .ROUTE ; Start 11/22/18 at 11:21; Stop 11/22/18 at 11:22; Status DC Amlodipine Besylate (Norvasc) 5 mg DAILY PO Last administered on 11/23/18 08: 09; Start 11/22/18 at 12:00 Gemfibrozil (Lopid) 600 mg DAILY PO Last administered on 11/23/18at 08:08; Start 11/22/18 at 12:00 Lidocaine HCl (Lidocaine 1% 20ml Vial) 20 ml STK-MED ONCE .ROUTE ; Start at 16:06; Stop 11/22/18 at 16:07; Status DC Fentanyl Citrate (Fentanyl 2ml Vial) 100 mcg STK-MED ONCE .ROUTE ; Start at 16:15; Stop 11/22/18 at 16:16; Status DC Midazolam HCl (Versed) 2 mg STK-MED ONCE .ROUTE ; Start 11/22/18 at 16:15; Stop 11/22/18 at 16:16; Status DC Heparin Sodium/ Sodium Chloride (HEPARIN for ARTERIAL LINE FLUSH) 1,000 unit 1X ONCE IART Last administered on 11/22/18 16:30; Start 11/22/18 at 16:30; Stop 11/22/18 at 16:31; Status DC Heparin Sodium/ Sodium Chloride (HEPARIN for ARTERIAL LINE FLUSH) 1,000 unit 1X ONCE IART Last administered on 11/22/18 16:30; Start 11/22/18 at 16:30; Stop 11/22/18 at 16:31; Status DC Midazolam HCl (Versed) 2 mg 1X ONCE IV Last administered on 11/22/18 16:30; Start 11/22/18 at 16:30; Stop 11/22/18 at 16:31; Status DC Fentanyl Citrate (Fentanyl 2ml Vial) 100 mcg 1X ONCE IV Last administered on 16:30; Start 11/22/18 at 16:30; Stop 11/22/18 at 16:31; Status DC Iohexol (Omnipaque 300 Mg/ml) 100 ml 1X ONCE IART Last administered on 16:30; Start 11/22/18 at 16:30; Stop 11/22/18 at 16:31; Status DC Lidocaine HCl (Lidocaine 1% 20ml Vial) 20 ml 1X ONCE INJ Last administered on 11/22/18 16:30; Start 11/22/18 at 16:30; Stop 11/22/18 at 16:31; Status DC Info (CONTRAST GIVEN -- Rx MONITORING) 1 each PRN DAILY PRN MC SEE COMMENTS; Start 11/22/18 at 16:30; Stop 11/24/18 at 16:29 Iohexol (Omnipaque 300 Mg/ml) 100 ml STK-MED ONCE .ROUTE ; Start 11/22/18 at 16: 57; Stop 11/22/18 at 16:58; Status DC Metoprolol Tartrate (Lopressor) 25 mg BID PO Last administered on 11/23/18at 08: 09; Start 11/22/18 at 21:00 Ranolazine (Ranexa) 500 mg BID PO Last administered on 11/23/18at 08:08; Start 11/22/18 at 21:00 Perflutren Protein Type A Microsphe (Optison) 0.66 mg PRN 1X PRN IV SEE COMMENTS; Start 11/22/18 at 19:15; Stop 11/23/18 at 19:14 Acetaminophen (Tylenol) 650 mg 1X ONCE PO Last administered on 11/23/18at 09:11 ; Start 11/23/18 at 09:00; Stop 11/23/18 at 09:03; Status DC Active Scripts Active Reported Hydroxyzine Hcl 25 Mg Tablet 25 Mg PO PRN TID PRN Jardiance (Empagliflozin) 25 Mg Tablet 25 Mg PO DAILY Protonix (Pantoprazole Sodium) 40 Mg Granpkt.dr 40 Mg PO DAILYAC Propranolol Hcl 80 Mg Cap.sa.24h 80 Mg PO DAILY Amlodipine Besylate 5 Mg Tablet 5 Mg PO DAILY Lopid (Gemfibrozil) 600 Mg Tablet 600 Mg PO DAILY Humalog (Insulin Lispro) 100 Unit/1 Ml Vial 15 Unit SQ TIDAC Toujeo Solostar (Insulin Glargine,Hum.rec.anlog) 300 Unit/1 Ml Insuln.pen 56 Unit SQ DAILY Vital Signs Vital Signs Date Time Temp Pulse Resp B/P (MAP) Pulse Ox O2 Delivery O2 Flow Rate FiO2 11/23/18 08:09 61 135/86 11/23/18 07:00 97.4 18 93 Room Air 97.4 11/22/18 20:15 2.0 Labs Laboratory Tests Test 11/21/18 16:45 11/21/18 23:10 11/21/18 23:21 11/22/18 07:18 White Blood Count 5.9 x10^3/uL (4.0-11.0) Red Blood Count 5.56 x10^6/uL (4.30-5.70) Hemoglobin 15.1 g/dL (13.0-17.5) Hematocrit 44.3 % (39.0-53.0) Mean Corpuscular Volume 80 fL (79-100) Mean Corpuscular Hemoglobin 27 pg (25-35) Mean Corpuscular Hemoglobin Concent 34 g/dL (31-37) Red Cell Distribution Width 13.7 % (11.5-14.5) Platelet Count 203 x10^3/uL (140-400) Neutrophils (%) (Auto) 48 % (31-73) Lymphocytes (%) (Auto) 40 % (24-48) Monocytes (%) (Auto) 9 % (0-9) Eosinophils (%) (Auto) 2 % (0-3) Basophils (%) (Auto) 1 % (0-3) Neutrophils # (Auto) 2.8 x10^3uL (1.8-7.7) Lymphocytes # (Auto) 2.4 x10^3/uL (1.0-4.8) Monocytes # (Auto) 0.5 x10^3/uL (0.0-1.1) Eosinophils # (Auto) 0.1 x10^3/uL (0.0-0.7) Basophils # (Auto) 0.1 x10^3/uL (0.0-0.2) Troponin I Quantitative < 0.017 ng/mL (0.000-0.055) < 0.017 ng/mL (0.000-0.055) Sodium Level 141 mmol/L (136-145) Potassium Level 3.9 mmol/L (3.5-5.1) Chloride Level 104 mmol/L (98-107) Carbon Dioxide Level 25 mmol/L (21-32) Anion Gap 12 (6-14) Blood Urea Nitrogen 19 mg/dL (8-26) Creatinine 1.0 mg/dL (0.7-1.3) Estimated GFR (Cockcroft-Gault) 75.5 Glucose Level 219 mg/dL (70-99) Calcium Level 9.6 mg/dL (8.5-10.1) Glucose (Fingerstick) 210 mg/dL (70-99) 131 mg/dL (70-99) Test 11/22/18 08:00 11/22/18 11:52 11/22/18 17:39 11/22/18 20:51 Prothrombin Time 13.7 SEC (11.7-14.0) Prothromb Time International Ratio 1.1 (0.8-1.1) Hemoglobin A1c 8.3 % (4.8-5.6) Troponin I Quantitative < 0.017 ng/mL (0.000-0.055) Triglycerides Level 284 mg/dL (0-150) Cholesterol Level 179 mg/dL (0-200) LDL Cholesterol, Calculated 95 mg/dL (0-100) VLDL Cholesterol, Calculated 57 mg/dL (0-40) Non-HDL Cholesterol Calculated 152 mg/dL (0-129) HDL Cholesterol 27 mg/dL (40-60) Cholesterol/HDL Ratio 6.6 Glucose (Fingerstick) 135 mg/dL (70-99) 112 mg/dL (70-99) 186 mg/dL (70-99) Test 11/23/18 06:59 Glucose (Fingerstick) 161 mg/dL (70-99) Laboratory Tests Test 11/22/18 11:52 11/22/18 17:39 11/22/18 20:51 11/23/18 06:59 Glucose (Fingerstick) 135 mg/dL (70-99) 112 mg/dL (70-99) 186 mg/dL (70-99) 161 mg/dL (70-99) Allergies Allergies Coded Allergies Type Severity Reaction Last Updated Verified Javogwn-Zvm-Avo Reductase Inhibitor Allergy Intermediate 11/21/18 Yes Disposition/Orders: D/C to Home ANGEL SWANN MD Nov 23, 2018 09:56
[2018-11-23 10:50] VITALS: BP_SYST 130
--- NOTE | 2018-11-23 11:05 | CARD ---
MR#: [id number] Date of Study: 11/22/2018 Ordering Physician: YOU CHRISTIAN, Referring Physician: Harrison CHAPA: Valerie Benjamin JEAN APPROVED REPORT EXAM: Two-dimensional and M-mode echocardiogram with Doppler and color Doppler. Other Information Quality : FairHR: 64bpm Rhythm : NSRTechnically limited study due to Patient supine S?P cath INDICATION Abnormal ECG CAD Echo Enhancing Agent Indication: Endocardial border delineation Agent/Amount Used: Optison 2mL 2D DIMENSIONS RVDd3.3 (2.9-3.5cm)Left Atrium(2D)4.5 (1.6-4.0cm) IVSd1.4 (0.7-1.1cm)Aortic Root(2D)3.2 (2.0-3.7cm) LVDd4.8 (3.9-5.9cm)LVOT Diameter2.2 (1.8-2.4cm) PWd1.4 (0.7-1.1cm)LVDs3.0 (2.5-4.0cm) FS (%) 37.5 %SV71.8 ml LVEF(%)67.5 (>50%) Aortic Valve AoV Peak Scott.93.2cm/Nikolai Peak GR.3.5mmHg Mitral Valve MV E Vejsfrei68.9cm/sMV DECEL BASE785rm MV A Nhbukrdg51.0cm/sE/A Ratio0.9 MV A Nhmcmddf941pm Pulmonary Valve PV Peak Qvmgywwo888.3cm/s Pulmonary Vein S1 Bbnmykuu28.9cm/sD2 Lthxnsul77.5cm/s PVa xtcedcbv24qwwq LEFT VENTRICLE The left ventricle is normal size. There is mild concentric left ventricular hypertrophy. The left ve ntricular systolic function is normal. The ejection fraction is 55-60%. There is normal LV segmental wall motion. RIGHT VENTRICLE The right ventricle is normal size. There is normal right ventricular wall thickness. The right ventr icular systolic function is normal. ATRIA The left atrium is mildly dilated. The right atrium size is normal. The interatrial septum is intact with no evidence for an atrial septal defect or patent foramen ovale as noted on 2-D or Doppler imagi ng. AORTIC VALVE The aortic valve is normal in structure and function. Doppler and Color Flow revealed no significant aortic regurgitation. There is no significant aortic valvular stenosis. MITRAL VALVE The mitral valve is not well visualized. There is no mitral valve stenosis. Doppler and Color-flow re vealed trace mitral regurgitation. TRICUSPID VALVE The tricuspid valve is normal in structure and function. Doppler and Color Flow revealed no tricuspid valve regurgitation noted. There is no tricuspid valve stenosis. PULMONIC VALVE The pulmonary valve is normal in structure and function. Doppler and Color Flow revealed no pulmonic valvular regurgitation. GREAT VESSELS The aortic root is normal in size. The ascending aorta is normal in size. The IVC is normal in size a nd collapses >50% with inspiration. PERICARDIAL EFFUSION There is no pleural effusion. There is no evidence of significant pericardial effusion. Critical Notification Critical Value: No <Conclusion> The left ventricular systolic function is normal. The ejection fraction is 55-60%. There is normal LV segmental wall motion. Trace mitral regurgitation. There is no evidence of significant pericardial effusion. Signed by : Bigg Davis, Electronically Approved : 11/23/2018 11:04:49
--- NOTE | 2018-11-23 12:02 | PDOC ---
CARDIOLOGY PROGRESS NOTE SUBJECTIVE: No acute events overnight. Patient denies any chest pain this morning. He is able to ambulate in the room. OBJECTIVE: Vital SIgns: Vital Signs Date Time Temp Pulse Resp B/P (MAP) Pulse Ox O2 Delivery O2 Flow Rate FiO2 11/23/18 10:50 98.2 65 18 130/ 96 Room Air 98.2 11/22/18 20:15 2.0 I & O Intake and Output 11/23/18 07:00 Intake Total 1240 ml Output Total 2450 ml Balance -1210 ml Intake Oral 1240 ml Output Urine Total 2450 ml Objective: Normal heart tones. Clear lung welch. Right groin access site is clean, dry and intact with 2+ femoral and pedal pulses. CURRENT MEDICATIONS: Current Medications Medications (Trade) Dose Ordered Sig/Deidre Start Time Stop Time Status Last Admin Dose Admin Acetaminophen (Tylenol) 650 mg 1X ONCE 11/23/18 09:00 11/23/18 09:03 DC 11/23/18 09:11 650 MG Amlodipine Besylate (Norvasc) 5 mg DAILY 11/22/18 12:00 11/23/18 08:09 5 MG Aspirin (Alex Aspirin) 325 mg 1X ONCE 11/21/18 17:00 11/21/18 17:01 DC 11/21/18 17:03 325 MG Dextrose (Dextrose 50%-Water Syringe) 12.5 gm PRN Q15MIN PRN 11/21/18 23:30 Fentanyl Citrate (Fentanyl 2ml Vial) 100 mcg 1X ONCE 11/22/18 16:30 11/22/18 16:31 DC 11/22/18 16:30 75 MCG Gemfibrozil (Lopid) 600 mg DAILY 11/22/18 12:00 11/23/18 08:08 600 MG Heparin Sodium/ Sodium Chloride (HEPARIN for ARTERIAL LINE FLUSH) 1,000 unit 1X ONCE 11/22/18 16:30 11/22/18 16:31 DC 11/22/18 16:30 1,000 UNIT Hydralazine HCl (Apresoline Inj) 10 mg PRN Q4HRS PRN 11/22/18 07:00 Info (CONTRAST GIVEN -- Rx MONITORING) 1 each PRN DAILY PRN 11/22/18 16:30 11/24/18 16:29 Insulin Glargine (Lantus) 56 units DAILY 11/22/18 09:00 11/23/18 09:25 56 UNITS Insulin Human Lispro (HumaLOG) 15 units TIDWMEALS 11/22/18 08:00 11/23/18 08:17 15 UNITS Iohexol (Omnipaque 300 Mg/ml) 100 ml STK-MED ONCE 11/22/18 16:57 11/22/18 16:58 DC Lidocaine HCl (Lidocaine 1% 20ml Vial) 20 ml 1X ONCE 11/22/18 16:30 11/22/18 16:31 DC 11/22/18 16:30 10 ML Lidocaine HCl (Xylocaine-Mpf 1% 2ml Vial) 2 ml STK-MED ONCE 11/22/18 11:21 11/22/18 11:22 DC Metoprolol Tartrate (Lopressor) 25 mg BID 11/22/18 21:00 11/23/18 08:09 25 MG Midazolam HCl (Versed) 2 mg 1X ONCE 11/22/18 16:30 11/22/18 16:31 DC 11/22/18 16:30 2 MG Nitroglycerin (Nitrostat) 0.4 mg PRN Q5MIN PRN 11/21/18 17:30 11/22/18 17:29 DC Ondansetron HCl (Zofran) 4 mg PRN Q8HRS PRN 11/21/18 17:30 11/22/18 17:29 DC Perflutren Protein Type A Microsphe (Optison) 0.66 mg PRN 1X PRN 11/22/18 19:15 11/23/18 19:14 Ranolazine (Ranexa) 500 mg BID 11/22/18 21:00 11/23/18 08:08 500 MG Zolpidem Tartrate (Ambien) 5 mg PRN QHS PRN 11/21/18 23:30 11/22/18 21:28 5 MG DIAGNOSTIC TESTING: No new laboratory testing at this time ASSESSMENT: 1. Severe three-vessel coronary artery disease with 4-4 bypass grafts patent with severe dyspnea etiology likely uncontrolled hypertension and left ventricular hypertrophy PLAN: Continue amlodipine, metoprolol and renexa. Walk later today, if ok, ok to DC home. f/u in the office in 4 weeks. DAMON GONG MD Nov 23, 2018 12:02
[2018-11-23] MEDS ORDERED: RANO500T2 PO (13:47)
[2018-11-23] MEDS ORDERED: METO25TA4 PO (13:48)
[2018-11-23 14:41] VITALS: BP 121/69
--- NOTE | 2018-11-23 17:20 | NUR ---
Discharge Note: AMBER STEEL Discharge instructions and discharge home medications reviewed with Patient and a copy given. All questions have been answered and understanding verbalized. The following instructions and handouts were given: Chest pain, angina, discharge instructions after cardiac catheterization Discontinued lines and drains: 20G R-AC peripheral IV removed, catheter intact. Patient discharged to home with self-care via ambulation to private vehicle. Patient gathered belongings, dressed self, and walked to car with this nurse. Patient had a steady gait and was stated he was ready to get home.
== END 2018-11-23 16:55 | disposition home or self-care (01) | DRG 287 ==
LOC: ER 16:16 → 2 SOUTH 17:08
PROVIDERS: ADMIT Family Medicine; ATTEND Family Medicine
PROC: 4A023N7 Measurement of Cardiac Sampling and Pressure, Left Heart, Percutaneous Approach (ICD-10-PCS; principal; 2018-11-22)
PROC: B2151ZZ Fluoroscopy of Left Heart using Low Osmolar Contrast (ICD-10-PCS; 2018-11-22)
PROC: B2111ZZ Fluoroscopy of Multiple Coronary Arteries using Low Osmolar Contrast (ICD-10-PCS; 2018-11-22)
PROC: B2131ZZ Fluoroscopy of Multiple Coronary Artery Bypass Grafts using Low Osmolar Contrast (ICD-10-PCS; 2018-11-22)
DX: I25.10 Atherosclerotic heart disease of native coronary artery without angina pectoris (principal); I50.32 Chronic diastolic (congestive) heart failure; R07.89 Other chest pain; I11.0 Hypertensive heart disease with heart failure; E78.00 Pure hypercholesterolemia, unspecified; E78.5 Hyperlipidemia, unspecified; F41.9 Anxiety disorder, unspecified; E11.65 Type 2 diabetes mellitus with hyperglycemia; G47.33 Obstructive sleep apnea (adult) (pediatric); K21.9 Gastro-esophageal reflux disease without esophagitis; Z79.4 Long term (current) use of insulin; Z79.899 Other long term (current) drug therapy; Z82.0 Family history of epilepsy and other diseases of the nervous system; Z82.49 Family history of ischemic heart disease and other diseases of the circulatory system; Z85.46 Personal history of malignant neoplasm of prostate; Z88.8 Allergy status to other drugs, medicaments and biological substances; Z90.49 Acquired absence of other specified parts of digestive tract; Z95.1 Presence of aortocoronary bypass graft
CPT/HCPCS: 36415; 71046; 76882; 80048; 80061; 82962; 83036; 84484; 85025; 85610; 93005; 93306; 93459; 99152; 99153; C1760; C1769; C1892; G0269; J1644; J1815; J2250; J3010; Q9967; 99285-25; C1771

== ENCOUNTER → 2019-07-28 | Outpatient (CLI) | payer OTHER ==
[~2019-07-28] MED LIST: AMLO5TAB10 PO; EMPA25TA PO; GEMF600T PO; HYDR25TA PO; INSU100V6 SQ; INSU300I SQ; METO25TA4 PO; PANT40GR PO; PROP80CA3 PO; RANO500T2 PO
--- NOTE | 2019-07-28 12:30 | RAD ---
MR#: [id number] Date of Study: 07/28/2019 Ordering Physician: DAMON GONG, Referring Physician: JU EVANS Tech: MAXWELL Johnson APPROVED REPORT Test Type: Exercise Stress Nurse/Tech: Arturo ORDAZ Test Indications: Dyspnea and CP Cardiac History: HTN, CABG in 2006, See EMR Medications: Insulin, DM oral agent, See EMR Medical History: DM, See EMR Resting ECG: SR w/ QRS and ST abnormalities Resting Heart Rate: 70 bpm Resting Blood Pressure: 164/98mmHg Pretest Chest Pain: No chest pain Nurse/Tech Notes Lungs CTA, Heart tones regular. Consent: The procedure was explained to the patient in lay terms. Informed consent was witnessed. Len eout was entered into Wallit. History and Stress Test performed by Ned Paige, RT (R) (N) Stress Symptoms Dyspnea and Chest Pain. Pt c/o sharp midsternal chest pain in Stage 2 peak exersice @ 2/10, 03:32. C hest pain increased during stage R to a 7/10 @ 04:55; bp 183/93. Chest pain decreased to a 1/10 by 08 :12 of stage R, bp 177/92. Pt instructed to take all home medications, upon going to the cafeteria t o eat. POST EXERCISE Reason for Termination: Reached target heart rate Target HR: Yes Max HR: 140 bpm 90% of Maximum Predicted HR: 156 bpm Exercise duration: 06:32 min:sec, 2 Stage Exercise capacity: 7.0METs Max Blood Pressure: 215/93mmHg Blood Pressure response to exercise: Abnormal increase in blood pressure during stress. Heart Rate response to exercise: WNL Chest Pain: Yes. See stress symptoms Arrhythmia: No. ST Change: No. INTERPRETATION Stress EKG Conclusion: The resting EKG shows a sinus rhythm with nonspecific ST-T wave changes and a Q wave in lead III. The stress EKG shows no significant changes from baseline. Abnormal baseline EKG but no EKG evidence of stressed induced ischemia. Imaging Protocol IMAGE PROTOCOL: Rest Tc-99m/stress Tc-99m 1 day Rest: Stress: Viability: Radiopharm.Tc99m GadgwuqxbAx34m Sestamibi Ieff14bQu 33mCi Duration 15min. 10min. Img Date 07/28/2019 07/28/2019 Inj-Img Bine73lll. 60min. Rest Admin Site:IV - Left HandAdministrator:Ned Grecia, RT (R)(N) Stress Admin Site: IV - Left HandAdministrator: Ned Paige, RT (R)(N) STRESS DATA End Diast. Vol.83.0mlAv. Heart Zckn430.0bpm End Syst. Vol.54.0mlCO Index BSA0.0L/min Myocardial Afts978.0gEject. Imrvovfq06.0% Stress Rates Pk. Fill Rate3.50EDV/secLVtime Pk. Fill 152.27msec Pk. Empty Rate3.52ESV/secLVtime Pk. Eject85.53msec / Pk. Fill0.57EDV/sec Stress Scores Regional WT3.00Summed WT49.00 Regional WM1.00Summed WM41.00 LV Perfusion The stress scans showed no significant defects. The rest scans showed no significant defects. Nuclear imaging shows no reversible ischemia or infarct. Wall Motion Moderately decreased LV systolic function on a global basis with an ejection fraction of 35%. LV Perf. Quant 17 Seg. SSS5.00 17 Seg. SRS1.00 17 Seg. SDS4.00 Stress Defect Extent (% LAD)0.00Rest Defect Extent (% LAD)0.00Rev. Defect Extent (% LAD)0.00 Stress Defect Extent (% LCX) 13.80Rest Defect Extent (% LCX)18.80Rev. Defect Extent (% LCX)7.50 Stress Defect Extent (% RCA)0.00Rest Defect Extent (% RCA)0.00Rev. Defect Extent (% RCA)0.00 Stress Defect Extent (% JYOTI)3.50Rest Defect Extent (% JYOTI)3.30Rev. Defect Extent (% JYOTI)2.40 Conclusion 1. Fair exercise tolerance. 2. Chest pain reported with exertion as noted above. 3. Nuclear imaging shows no reversible ischemia or infarct. 4. Moderately decreased LV systolic function on a global basis with an ejection fraction of 35% and a TID of 1.14. 5. Moderate risk treadmill nuclear stress test suggestive of a nonischemic cardiomyopathy. Signed by : Efren Kemp MD Electronically Approved : 07/28/2019 12:30:16
== END | disposition home or self-care (01) ==
LOC: NM 08:00
PROVIDERS: ATTEND Internal Medicine Cardiovascular Disease
DX: R07.89 Other chest pain (principal); I10 Essential (primary) hypertension; E11.9 Type 2 diabetes mellitus without complications; Z95.1 Presence of aortocoronary bypass graft
CPT/HCPCS: 78452; 93017; A9500

== ENCOUNTER 2019-08-08 09:01 | Outpatient (CLI) | payer OTHER ==
[~2019-08-08] VITALS: Ht 182.9 cm; Wt 108.9 kg
[2019-08-08] VITALS (14 sets, daily range): BP systolic 108–151; BP diastolic 79–91
[2019-08-08] MEDS ORDERED: METF500T16 PO (09:22)
[2019-08-08] MEDS ORDERED: DOCU-109 PO (09:23)
[2019-08-08 09:34] LABS: HEMATOCRIT 41.4 % (39.0-53.0); HEMOGLOBIN 14.2 g/dL (13.0-17.5); RED CELL DISTRIBUTION WIDTH 13.3 % (11.5-14.5); WHITE BLOOD COUNT 7.4 x10^3/uL (4.0-11.0)
[2019-08-08 09:53] LABS: CALCIUM 9.4 mg/dL (8.5-10.1); GFR 75.2; PROTHROMBIN TIME PATIENT 12.8 SEC (11.7-14.0)
[2019-08-08 09:54] LABS: POTASSIUM 5.5 mmol/L (3.5-5.1)
[2019-08-08] MEDS ORDERED: HEPARIN for ARTERIAL LINE 1,500 ML ONE (10:06)
[2019-08-08] MEDS ORDERED: LIDOCAINE 1% Multi-Dose 20 ML VIAL. ONE ×3 (10:06→11:39)
[2019-08-08] MEDS ORDERED: IOHEXOL 300 MG/ML 100ML VIAL. ONE ×2 (10:06→11:29)
[2019-08-08] MEDS ORDERED: MIDAZOLAM HCL/PF 2 MG/2 ML VIAL. ONE (10:34)
[2019-08-08] MEDS ORDERED: fentaNYL PF VIAL 100 MCG/2 ML VIAL ONE (10:34)
[2019-08-08] MEDS ORDERED: fentaNYL PF VIAL 100 MCG/2 ML VIAL IV ONE (11:15)
[2019-08-08] MEDS ORDERED: MIDAZOLAM HCL/PF 2 MG/2 ML VIAL. IV ONE (11:15)
[2019-08-08] MEDS ORDERED: IOHEXOL 300 MG/ML 100ML VIAL. IART ONE (11:15)
[2019-08-08] MEDS ORDERED: LIDOCAINE 1% Multi-Dose 20 ML VIAL. INJ ONE (11:15)
[2019-08-08] MEDS ORDERED: ASPIRIN CHEWABLE 81 MG TABLET. PO ONE (11:15)
[2019-08-08] MEDS ORDERED: CONTRAST GIVEN. MC PRN (11:30)
--- NOTE | 2019-08-08 13:20 | CARD ---
MR#: [id number] Date of Study: 08/08/2019 Ordering Physician: DAMON HILLMAN, Referring Physician: DAMON HILLMAN, Tech: MACY BOWMAN RTR APPROVED REPORT Technologist: MACY BOWMAN RTR Nurse: Odalys Garcia R.N. Procedure(s) performed: MODERATE SEDATION TIME: 65 MINUTES FLUORO TIME: 11.7 MIN DOSE: 139 GYCM2 CONTRAST: 150 LHC, Coronary and bypass angiography HISTORY The patient is a 64 year-old male with a history of : coronary artery disease, hypertension, dyslipid emia. INDICATION The indication(s) include : unstable angina . [facility] Clinical Frailty Scale [facility] Clinical Frailty Scale: Managing Well Heart Failure Heart Failure: Yes If Yes, Newly Diagnosed: No If Yes, HF Type: Diastolic If Yes, NYHA Class: Class II PROCEDURE NARRATIVE After explaining the risks and benefits of the procedure and alternatives, informed consent was obtai jennifer. The patient was brought electively to the cardiac catheterization lab in a fasting state. A ruel eout was performed confirming the patient's name, date of , procedure, and site of procedure. A ll necessary personnel were wearing the appropriate protective equipment and radiation monitor device s. (See nursing notes for medications administered). The right groin was sterilely prepped and drap ed in the usual fashion. The right groin was infiltrated with 10 mL of 2% lidocaine for subcutaneous anesthesia. A 6 F sheath was inserted into the right femoral artery without difficulty. Right and left coronary angiography was performed using a JR4 and JL5, AL1 catheter. Bypass angiography was pe rformed with a MPA, MECHE and JR4 catheters. Left ventricular end diastolic pressure was obtained with a pigtail catheter and pullback was performed after left ventriculography. All catheter exchanges an d advancements were performed over a guidewire. At case completion the right femoral sheath was brittany adama and hemostasis was achieved with an Angioseal Device after limited femoral angiography confirmed adequate vessel size and anatomy. There were no acute complications. HEMODYNAMICS: AO: 123/83 LVEDP 12 mm Hg No gradient on LV to aortic pullback. LEFT VENTRICULOGRAM: EF 55% Anterobasal: Normal. Anterolateral: Normal Apical: Normal Diaphragmatic: Normal Posterobasal: Normal *No significant mitral regurgitation or aortic insufficiency. CORONARY ANGIOGRAPHY: LM is a large caliber vessel with a distal 50% stenosis involving a trifurcation of vessels. LAD is a moderate caliber vessel with a proximal 100% occlusion. The distal vessel is seen to fill vi a LANZA to LAD. Ramus is a moderate caliber vessel with an ostial 50% stenosis. The mid and distal vessel is seen to fill via a patent radial graft. LCx is a moderate caliber non-dominant vessel with an ostial 50% stenosis. OM1 is a moderate caliber vessel with a long proximal to mid 50% stenosis. RCA is a large caliber dominant vessel with a mid 100% occlusion. RPDA is a moderate caliber vessel with normal angiographic appearance. BYPASS ANGIOGRAPHY: LANZA to LAD - Widely patent without anastomotic stenosis. SVG to RCA - Widely patent with a stenosis of 40-50% just distal to the distal anastomosis. Radial to OM1 - Small in caliber but widely patent without anastomotic stenosis. SVG to OM2 - Occluded proximally Conclusion 1. Normal left sided filling pressures. 2. Normal LV systolic function. EF 55% 3. Severe moapa three vessel coronary disease. 4. 3/4 grafts patent. Recommendations 1. Due to chronic occlusion of the SVG (No current chest pain, EKG changes or positive troponin and l ack of significant localizing ischemia on recent stress testing), further intervention was deferred. 2. Patient previously 6 months ago had a 70% stenosis in the now occluded vein graft but he also at t hat time had no evidence of ischemia or LV dysfunction and was started on medical therapy. 3. Patient had bypass in 2006 and over the last 5 years has had intermittent (non-exertional) chest p ain that is occurring every 1-2 months. Despite previously having had all 4 grafts patent, he had evelyn n. Suspect his symptoms are mostly microvascular in nature. Will continue aggressive medical therapy to include Imdur, Ranexa, Metoprolol. No clear lesions for i ntervention at this time. Signed by : Damon Hillman, Electronically Approved : 08/08/2019 13:19:46
[2019-08-08] MEDS ORDERED: ASPI81TA59 PO (14:07)
[2019-08-08] MEDS ORDERED: RANO10002 PO (14:35)
[2019-08-08] MEDS ORDERED: ISOS30TA4 PO (14:35)
--- NOTE | 2019-08-08 15:02 | NUR ---
Discharge Note: [facility] Discharge instructions and discharge home medications reviewed with Patient and a copy given. All questions have been answered and understanding verbalized. The following instructions and handouts were given: adult moderate sedation,groin site care,and arteriogram info. Prescriptions for Imdur and Ranexa. Discontinued lines and drains: Peripheral IV intact. Patient stood up and had no dizziness or problems walking. Groin site soft with no bleeding and dressing clean,dry, and intact. [facility]
[2019-08-08 15:37] LABS: CHOLESTEROL/HDL RATIO 5.6
== END 2019-08-08 15:15 | disposition home or self-care (01) ==
LOC: CCL 09:01
PROVIDERS: ATTEND Internal Medicine Cardiovascular Disease
DX: I25.700 Atherosclerosis of coronary artery bypass graft(s), unspecified, with unstable angina pectoris (principal)
CPT/HCPCS: 36415; 80048; 80061; 84484; 85027; 85610; 93459; 99152; 99153; C1760; C1769; C1892; J1644; J2250; J3010; Q9967; G0269; C1771

== ENCOUNTER → 2020-03-05 | Outpatient (CLI) | payer OTHER ==
[2019-09-04 10:42] VITALS: BP 123/79
[~2020-03-05] MED LIST changes: +AMLO10TA4 PO; +ASPI81TA59 PO; +CLOP75TA PO; +DOCU-109 PO; +ISOS30TA4 PO; +METF500T16 PO; +RANO10002 PO
--- NOTE | 2020-03-05 15:12 | KCIC ---
EXAMINATION: MRI right knee without contrast INDICATIONS: Knee pain all over limited range of motion for 8 weeks.. TECHNIQUE: Multiplanar multisequence MRI of the right knee was obtained without contrast. COMPARISON: None. FINDINGS: MENISCI: There is a degenerative tear of the posterior horn and body medial meniscus with a horizontal component extending to the inferior surface of the body and a small incomplete radial tear in the posterior horn. There is increased signal extending into the anterior horn medial meniscus. The lateral meniscus is intact. Posterior root ligaments are intact. LIGAMENTS: The anterior and posterior cruciate ligaments are intact. The medial collateral ligament and lateral collateral ligament complex are intact. EXTENSOR MECHANISM: Focal increased signal and thickening of the proximal patellar tendon. Quadriceps tendon is intact. Fat pads and retinacula are normal. BONES AND CARTILAGE: There are small benign T2 hyperintense cartilage rests in the distal femoral diaphysis. No acute fracture or marrow edema. Small tricompartment osteophytes. There is superficial and deep partial-thickness cartilage loss along the medial patellar facet and scattered superficial partial-thickness cartilage loss elsewhere along the patella. Trochlear cartilage is intact. There is full-thickness cartilage loss throughout the central weightbearing medial femoral condyle and anterior medial tibial plateau with tiny subchondral cysts. More posterior medial compartment cartilage is intact. There is superficial partial-thickness cartilage loss in the lateral compartment. OTHER: Small joint effusion. No intra-articular body. No Drew cyst. Mild prepatellar bursal thickening. IMPRESSION: 1. Degenerative tear of the medial meniscus body and posterior horn. 2. Tricompartmental cartilage loss, greatest in medial compartment where there is full-thickness cartilage loss. 3. Mild proximal patellar tendinopathy and prepatellar bursal thickening. Electronically signed by: Yris Reed MD (03/05/2020 3:09 PM) [id number]
== END ==
LOC: KCIC MRI 10:59
PROVIDERS: ATTEND Orthopaedic Surgery
DX: S83.241A Other tear of medial meniscus, current injury, right knee, initial encounter (principal); M25.461 Effusion, right knee; X58.XXXA Exposure to other specified factors, initial encounter; Y93.89 Activity, other specified; Y92.89 Other specified places as the place of occurrence of the external cause; Y99.8 Other external cause status
CPT/HCPCS: 73721

== ENCOUNTER → 2021-09-03 | Outpatient (CLI) | payer MEDICARE, OTHER ==
[2019-09-04 10:42] VITALS: BP 123/79
[~2021-09-03] MED LIST changes: +AMLO-186 PO; -AMLO5TAB10 PO; -ISOS30TA4 PO; +ISOS30TA68 PO
--- NOTE | 2021-09-03 15:04 | KCIC ---
EXAM: Chest, 2 views. HISTORY: Fall. COMPARISON: None. FINDINGS: 2 views of the chest are obtained. There is no infiltrate, pleural effusion or pneumothorax . The heart is normal in size. There is evidence of prior CABG. There is lingular atelectasis or scar ring. IMPRESSION: No acute pulmonary finding. Electronically signed by: Paula Spencer MD (09/03/2021 3:01 PM) [id number]
== END ==
LOC: KCIC 14:32
PROVIDERS: ATTEND Family Medicine
DX: R07.1 Chest pain on breathing (principal); W19.XXXA Unspecified fall, initial encounter
CPT/HCPCS: 71046